=== PATIENT | male | born 1955 | race Caucasian/White ===

== ENCOUNTER 2021-08-31 10:24 | Emergency (ER) | payer MEDICARE, OTHER ==
[2021-08-31 11:43] LABS: CORONAVIRUS COVID-19 NAA POSITIVE (NEGATIVE)
[2021-08-31] MEDS ORDERED: Sodium Chloride 0.9% 10 ML Syringe FLUSH PRN (12:15)
--- NOTE | 2021-08-31 12:17 | EDM.PDOC ---
ED HPI GENERAL MEDICAL PROBLEM - General Chief Complaint: General Stated Complaint: BODY ACHES AND CHILLS A WEEK AGO Time Seen by Provider: 08/31/21 11:59 Source of Information: Reports: Patient, Family, RN Notes Reviewed History Limitations: Reports: No Limitations - History of Present Illness INITIAL COMMENTS - FREE TEXT/NARRATIVE: 66-year-old gentleman presents emergency department day concern about Covid, he has had loss of taste and smell as well as body aches and fevers. No difficulty breathing he is not vaccinated - Related Data Allergies Allergy/AdvReac Type Severity Reaction Status Date / Time No Known Allergies Allergy Verified 08/31/21 10:57 Home Meds: Home Meds Aspirin 81 mg PO DAILY 08/31/21 [History] Azilsartan Medoxomil [Edarbi] 10 mg PO DAILY 08/31/21 [History] Tamsulosin [Tamsulosin 24 Hr] 0.4 mg PO DAILY 08/31/21 [History] atorvaSTATin [Lipitor] 10 mg PO BEDTIME 08/31/21 [History] Past Medical History Cardiovascular History: Reports: High Cholesterol, Hypertension - Infectious Disease History Infectious Disease History: Reports: Chicken Pox - Past Surgical History Male Surgical History: Reports: Prostatectomy Musculoskeletal Surgical History: Reports: Knee Replacement Social & Family History - Tobacco Use Tobacco Use Status *Q: Never Tobacco User - Caffeine Use Caffeine Use: Reports: Coffee ED ROS GENERAL - Review of Systems Review Of Systems: See Below Constitutional: Reports: Fever, Weakness, Fatigue Respiratory: Reports: No Symptoms Cardiovascular: Reports: No Symptoms GI/Abdominal: Reports: No Symptoms Musculoskeletal: Reports: Muscle Pain ED EXAM, GENERAL - Physical Exam Exam: See Below Exam Limited By: No Limitations General Appearance: Alert, WD/WN, No Apparent Distress Respiratory/Chest: No Respiratory Distress, Lungs Clear, Normal Breath Sounds, No Accessory Muscle Use, Chest Non-Tender Cardiovascular: Regular Rate, Rhythm, No Murmur Course - Vital Signs Last Recorded V/S: Last Vital Signs Temp 98.2 F 08/31/21 10:50 Pulse 69 08/31/21 10:50 Resp 16 08/31/21 10:50 BP 131/82 08/31/21 10:50 Pulse Ox 99 08/31/21 10:50 - Orders/Labs/Meds Orders: Active Orders 24 hr Category Date Time Status Peripheral IV Care [RC] . DIRECTED Care 08/31/21 12:15 Ordered Sodium Chloride 0.9% [Saline Flush] Med 08/31/21 12:15 Ordered 10 ml FLUSH ASDIRECTED PRN Isolation [COMM] Stat Oth 08/31/21 10:27 Ordered Peripheral IV Insertion Adult [OM.PC] Urgent Oth 08/31/21 12:15 Ordered Labs: Laboratory Tests 08/31/21 Range/Units 10:27 Influenza Type A RNA Negative (NEGATIVE) RSV RNA (INAAT) Negative (NEGATIVE) Influenza Type B RNA Negative (NEGATIVE) SARS-CoV-2 RNA ([facility]) Positive H (NEGATIVE) Departure - Departure Time of Disposition: 12:17 Disposition: Home, Self-Care 01 Condition: Fair Clinical Impression: COVID-19 - Discharge Information Instructions: 10 Things You Can Do to Manage Your COVID-19 Symptoms at Home - [facility] (04/24/2021) Referrals: PCP,None [Primary Care Provider] - Additional Instructions: Continue symptomatic care, please followup with your primary care provider in 7-10 days if not better, please call return to the emergency department with worsening of symptoms. Sepsis Event Note (ED) - Evaluation Sepsis Screening Result: No Definite Risk - Focused Exam Vital Signs: Vital Signs Temp Pulse Resp BP Pulse Ox 08/31/21 10:50 98.2 F 69 16 131/82 99 - My Orders Last 24 Hours: My Active Orders 08/31/21 10:27 Isolation [COMM] Stat 08/31/21 12:15 Peripheral IV Care [RC] . DIRECTED Sodium Chloride 0.9% [Saline Flush] 10 ml FLUSH ASDIRECTED PRN Peripheral IV Insertion Adult [OM.PC] Urgent - Assessment/Plan Last 24 Hours: My Active Orders 08/31/21 10:27 Isolation [COMM] Stat 08/31/21 12:15 Peripheral IV Care [RC] . DIRECTED Sodium Chloride 0.9% [Saline Flush] 10 ml FLUSH ASDIRECTED PRN Peripheral IV Insertion Adult [OM.PC] Urgent Plan: Assessment Acuity = acute Site and laterality = viral syndrome Etiology = COVID-19 Manifestations = none Location of injury = Home Lab values = COVID-19 positive, influenza A and influenza B both negative, RSV negative Plan She is currently on day 8-9 of symptoms therefore he is a candidate for monoclonal antibody therapy this was ordered plan to do this today follow-up primary care in 7 to 10 days if no improvement This note was dictated using [employer] voice recognition software please call with any questions on syntax or grammar.
[2021-08-31] MEDS ORDERED: Sodium Chloride 0.9% 1,000 ML IV SCH (12:45)
[2021-08-31] MEDS ORDERED: EPINEPHrine 1 MG/ML SDV IM PRN (13:00)
[2021-08-31] MEDS ORDERED: Acetaminophen 325 MG Tab PO PRN (13:00)
[2021-08-31] MEDS ORDERED: Bamlanivimab 700 MG, ETESEVIMAB 1,400 MG in Sodium Chloride 0.9% 100 ML IV ONE (13:00)
[2021-08-31] MEDS ORDERED: Famotidine 20 MG/2 ML SDV IV PRN (13:00)
[2021-08-31] MEDS ORDERED: diphenhydrAMINE 50 MG/ML SDV IVPUSH PRN (13:00)
[2021-08-31] MEDS ORDERED: methylPREDNISolone Sodium Succinate 125 MG/2 ML SDV IVPUSH PRN (13:00)
== END 2021-08-31 14:39 | disposition home or self-care (01) ==
LOC: JP.ED 10:24
DX: U07.1 COVID-19 (principal); E78.00 Pure hypercholesterolemia, unspecified; I10 Essential (primary) hypertension; Z79.82 Long term (current) use of aspirin; Z79.899 Other long term (current) drug therapy
CPT/HCPCS: 0241U; 99283; J7030; M0245; Q0245

== ENCOUNTER 2022-09-23 16:19 | Emergency (ER) | payer MEDICARE, OTHER | END 2022-09-23 17:58 | disposition home or self-care (01) | LOC: JP.ED 16:19 | DX: S16.1XXA Strain of muscle, fascia and tendon at neck level, initial encounter (principal); S00.03XA Contusion of scalp, initial encounter; E78.00 Pure hypercholesterolemia, unspecified; I10 Essential (primary) hypertension; F17.210 Nicotine dependence, cigarettes, uncomplicated; Z79.82 Long term (current) use of aspirin; Z79.899 Other long term (current) drug therapy; W01.10XA Fall on same level from slipping, tripping and stumbling with subsequent striking against unspecified object, initial encounter | CPT/HCPCS: 99283 ==